=== PATIENT | female | born 1970 | race Caucasian/White ===

== ENCOUNTER → 2016-11-04 | Outpatient (CLI) | payer BC | LOC: LAB 08:14 | DX: R11.2 Nausea with vomiting, unspecified (principal); R10.12 Left upper quadrant pain ==

== ENCOUNTER → 2017-07-06 | Outpatient (CLI) | payer BC | LOC: LAB 19:28 | DX: J02.9 Acute pharyngitis, unspecified (principal); R59.0 Localized enlarged lymph nodes ==

== ENCOUNTER 2017-09-13 11:20 | Emergency (ER) | payer BC ==
[~2017-09-13] VITALS: Ht 170.2 cm; Wt 79.5 kg
[2017-09-13] MEDS ORDERED: CHILDREN'S ALLE10 MG PO (11:25)
[2017-09-13] MEDS ORDERED: GOOD SENSE OMEP20 MG PO (11:25)
[2017-09-13 11:55] LABS: HEMATOCRIT 44.3 % (37.0-47.0); HEMOGLOBIN 14.9 g/dL (12.5-16.0); MEAN CELL VOLUME 88 fl (78-100); MEAN CORPUSCULAR HEMOGLOBIN 30 pg (27-31); MEAN CORPUSCULAR HGB CONC 34 g/dL (33-37); PLATELET COUNT 246 K/mm3 (130-400); RED BLOOD COUNT 5.03 M/mm3 (4.10-5.30); RED CELL DISTRIBUTION WIDTH 13.5 % (11.5-14.5); WHITE BLOOD COUNT 16.7 K/mm3 (4.8-10.8)
[2017-09-13 12:26] LABS: LYMPHOCYTE 7 % (20-51); NEUTROPHILS 89 % (42-75)
[2017-09-13 12:27] LABS: MONOCYTE 4 % (3-10)
[2017-09-13 12:38] LABS: URINE APPEARANCE HAZY; URINE COLOR YELLOW
[2017-09-13 12:39] LABS: URINE BILIRUBIN NEGATIVE (NEGATIVE); URINE BLOOD TRACE (NEGATIVE); URINE GLUCOSE NEGATIVE (NEGATIVE); URINE KETONE 1+ (NEGATIVE); URINE LEUKOCYTE ESTERASE TRACE (NEGATIVE); URINE MUCUS PRESENT (NOT PRESENT); URINE NITRATE NEGATIVE (NEGATIVE); URINE PROTEIN(semi-quant) 1+ mg/dL (NEGATIVE); URINE UROBILINOGEN NORMAL (NORMAL)
[2017-09-13] MEDS ORDERED: KETOROLAC10 MG PO (13:52)
[2017-09-13] MEDS ORDERED: NORCO 325 MG-51 TA1 PO (13:52)
[2017-09-13 14:25] VITALS: BP 129/80
== END 2017-09-13 14:02 | disposition home or self-care (01) ==
LOC: ED 11:20
PROVIDERS: Family Medicine
DX: S70.01XA Contusion of right hip, initial encounter (principal); S30.0XXA Contusion of lower back and pelvis, initial encounter; S20.221A Contusion of right back wall of thorax, initial encounter; S20.211A Contusion of right front wall of thorax, initial encounter; M54.2 Cervicalgia; V80.010A Animal-rider injured by fall from or being thrown from horse in noncollision accident, initial encounter; R40.2412 Glasgow coma scale score 13-15, at arrival to emergency department
CPT/HCPCS: J1885

== ENCOUNTER → 2018-08-11 | Outpatient (CLI) | payer BC ==
[~2018-08-11] MED LIST: CHILDREN'S ALLE10 MG PO; GOOD SENSE OMEP20 MG PO; KETOROLAC10 MG PO; NORCO 325 MG-51 TA1 PO
[2018-08-11 10:29] LABS: EOS # 0.1 (0.04-0.40); EOS % 2.3 % (1.0-5.0); HEMOGLOBIN 14.5 g/dL (12.5-16.0); LYMPH# 1.4 (1.50-4.00); MEAN CELL VOLUME 89 fl (78-100); MEAN CORPUSCULAR HEMOGLOBIN 29 pg (27-31); MEAN CORPUSCULAR HGB CONC 33 g/dL (33-37); MEAN PLATELET VOLUME 10.6 fl (7.4-10.4); MONO # 0.6 (0.20-0.80); NEU # 3.1 (1.40-6.50); PLATELET COUNT 232 K/mm3 (130-400); RED BLOOD COUNT 4.93 M/mm3 (4.10-5.30); RED CELL DISTRIBUTION WIDTH 13.7 % (11.5-14.5); WHITE BLOOD COUNT 5.2 K/mm3 (4.8-10.8)
[2018-08-11 10:42] LABS: CALCIUM 9.7 mg/dL (8.3-10.5); POTASSIUM 4.2 mmol/L (3.5-5.1); TOTAL BILIRUBIN 0.4 mg/dL (0.2-1.2); TOTAL PROTEIN 7.2 g/dL (6.4-8.3)
== END ==
LOC: LAB 10:07
PROVIDERS: Family Medicine
DX: J30.9 Allergic rhinitis, unspecified (principal); E78.5 Hyperlipidemia, unspecified; N80.9 Endometriosis, unspecified; R25.2 Cramp and spasm

== ENCOUNTER → 2018-09-10 | Outpatient (CLI) | payer BC | LOC: LAB 11:50 | DX: J02.9 Acute pharyngitis, unspecified (principal); J04.0 Acute laryngitis ==

== ENCOUNTER → 2019-04-13 | Outpatient (CLI) | payer BC | LOC: RAD 11:19 | DX: R05 Cough (principal) ==

== ENCOUNTER → 2019-08-15 | Outpatient (CLI) | payer BC | LOC: RAD 12:00 | DX: N20.0 Calculus of kidney (principal); M43.06 Spondylolysis, lumbar region ==

== ENCOUNTER → 2019-10-12 | Outpatient (CLI) | payer BC ==
[2019-09-27 17:14] VITALS: BP 131/87
[~2019-10-12] MED LIST changes: +CIPRO500 M1 PO; +ZYRTEC ALLERGY10 MG PO
[2019-10-12 09:07] LABS: URINE APPEARANCE CLEAR; URINE BILIRUBIN NEGATIVE (NEGATIVE); URINE BLOOD TRACE (NEGATIVE); URINE COLOR YELLOW; URINE GLUCOSE NEGATIVE (NEGATIVE); URINE KETONE NEGATIVE (NEGATIVE); URINE LEUKOCYTE ESTERASE NEGATIVE (NEGATIVE); URINE NITRATE NEGATIVE (NEGATIVE); URINE PROTEIN(semi-quant) NEGATIVE (NEGATIVE); URINE UROBILINOGEN NORMAL (NORMAL)
== END ==
LOC: LAB 08:42
PROVIDERS: Physician Assistant
DX: N39.0 Urinary tract infection, site not specified (principal); R11.0 Nausea

== ENCOUNTER → 2019-10-14 | Outpatient (CLI) | payer BC ==
[2019-09-27 17:14] VITALS: BP 131/87
[2019-10-14 10:22] LABS: EOS # 0.1 (0.04-0.40); EOS % 1.5 % (1.0-5.0); HEMATOCRIT 44.2 % (37.0-47.0); HEMOGLOBIN 14.8 g/dL (12.5-16.0); LYMPH# 1.2 (1.50-4.00); MEAN CELL VOLUME 88 fl (78-100); MEAN CORPUSCULAR HEMOGLOBIN 29 pg (27-31); MEAN CORPUSCULAR HGB CONC 34 g/dL (33-37); MONO # 0.4 (0.20-0.80); NEU # 2.4 (1.40-6.50); PLATELET COUNT 240 K/mm3 (130-400); RED BLOOD COUNT 5.03 M/mm3 (4.10-5.30); RED CELL DISTRIBUTION WIDTH 13.5 % (11.5-14.5)
[2019-10-14 10:33] LABS: ALBUMIN 4.2 g/dL (3.5-5.0)
[2019-10-14 10:34] LABS: POTASSIUM 4.2 mmol/L (3.5-5.1)
[2019-10-14 10:35] LABS: CALCIUM 9.4 mg/dL (8.3-10.5)
[2019-10-14 10:36] LABS: TOTAL PROTEIN 7.7 g/dL (6.4-8.3)
[2019-10-14 10:38] LABS: TOTAL BILIRUBIN 0.5 mg/dL (0.2-1.2)
== END ==
LOC: RAD 10:07
PROVIDERS: Physician Assistant
DX: N39.0 Urinary tract infection, site not specified (principal); Z90.710 Acquired absence of both cervix and uterus
CPT/HCPCS: Q9967

== ENCOUNTER 2021-04-16 12:38 | Emergency (ER) | payer BC ==
[~2021-04-16] VITALS: Ht 167.6 cm; Wt 83.1 kg
[2021-04-16] MEDS ORDERED: AMITRIPTYLINE H10 M2 PO (13:10)
[2021-04-16] MEDS ORDERED: CEFDINIR300 MG PO (13:11)
[2021-04-16 13:12] LABS: BASO # 0.02 K/mm3 (0.02-0.10); EOS # 0.09 K/mm3 (0.04-0.40); EOS % 1.4 % (1.0-5.0); HEMATOCRIT 42.5 % (37.0-47.0); HEMOGLOBIN 14.4 g/dL (12.5-16.0); LYMPH# 1.89 K/mm3 (1.50-4.00); MEAN CELL VOLUME 89 fl (78-100); MEAN CORPUSCULAR HEMOGLOBIN 30 pg (27-31); MEAN CORPUSCULAR HGB CONC 34 g/dL (33-37); MEAN PLATELET VOLUME 10.5 fl (7.4-10.4); MONO # 0.63 K/mm3 (0.20-0.80); NEU # 3.86 K/mm3 (1.40-6.50); PLATELET COUNT 218 K/mm3 (130-400); RED BLOOD COUNT 4.77 M/mm3 (4.10-5.30); WHITE BLOOD COUNT 6.5 K/mm3 (4.8-10.8)
[2021-04-16] MEDS ORDERED: BENTYL 20MG20 MG/TAB PO (13:13)
[2021-04-16] MEDS ORDERED: ZOFRAN ODT4 MG PO ×2 (13:14→16:17)
[2021-04-16 13:41] LABS: ALBUMIN 4.1 g/dL (3.5-5.0); POTASSIUM 3.9 mmol/L (3.5-5.1)
[2021-04-16 13:42] LABS: CALCIUM 9.5 mg/dL (8.3-10.5)
[2021-04-16 13:43] LABS: TOTAL PROTEIN 7.2 g/dL (6.4-8.3)
[2021-04-16 13:45] LABS: TOTAL BILIRUBIN 0.6 mg/dL (0.2-1.2)
[2021-04-16 14:28] LABS: URINE APPEARANCE CLEAR; URINE COLOR YELLOW; URINE GLUCOSE NEGATIVE (NEGATIVE); URINE KETONE NEGATIVE (NEGATIVE); URINE PROTEIN(semi-quant) TRACE (NEGATIVE); URINE UROBILINOGEN 1 mg/dL (NORMAL)
[2021-04-16 14:29] LABS: URINE BILIRUBIN 2+ (NEGATIVE); URINE BLOOD NEGATIVE (NEGATIVE); URINE LEUKOCYTE ESTERASE TRACE (NEGATIVE); URINE MUCUS PRESENT (NOT PRESENT); URINE NITRATE POSITIVE (NEGATIVE); URINE WBC 0-1 /hpf (0-3)
[2021-04-16] MEDS ORDERED: PYRIDIUM200 M2 PO (16:17)
[2021-04-16] MEDS ORDERED: CIPRO500 M1 PO (16:17)
[2021-04-16 16:27] VITALS: BP 137/90
== END 2021-04-16 16:28 | disposition home or self-care (01) ==
LOC: ED 12:38
PROVIDERS: Physician Assistant
DX: N30.90 Cystitis, unspecified without hematuria (principal); Z87.42 Personal history of other diseases of the female genital tract; Z87.891 Personal history of nicotine dependence
CPT/HCPCS: J0696; J1885; J2405; J7030; Q9967